=== PATIENT | male | born 1965 | race Two or more races ===

== ENCOUNTER 2024-07-13 06:24 | Day surgery (SDC) | payer OTHER, SELFPAY | END 2024-07-13 12:27 | disposition home or self-care (01) | LOC: GI 06:24 | PROVIDERS: ATTENDING PHYSICIAN Internal Medicine | DX: Z12.11 Encounter for screening for malignant neoplasm of colon (principal); R19.5 Other fecal abnormalities; K64.4 Residual hemorrhoidal skin tags; K64.8 Other hemorrhoids; K57.30 Diverticulosis of large intestine without perforation or abscess without bleeding; D17.5 Benign lipomatous neoplasm of intra-abdominal organs | CPT/HCPCS: G0121 ==